=== PATIENT | male | born 1960 | race Two or more races ===

== ENCOUNTER 2019-12-03 07:10 | Outpatient (REF) | payer MEDICARE, MEDICAID, SELFPAY ==
[2019-12-03 07:22] LABS: COVID-19 Test Positive (Negative)
== END 2019-12-03 07:11 | disposition home or self-care (01) ==
LOC: HO.LAB 07:10
PROVIDERS: PCP Internal Medicine Endocrinology, Diabetes & Metabolism; Visit Provider Internal Medicine
DX: Z20.828 Contact with and (suspected) exposure to other viral communicable diseases (principal)
CPT/HCPCS: 87635

== ENCOUNTER 2019-12-21 07:06 | Outpatient (REF) | payer MEDICARE, MEDICAID, SELFPAY | END 2019-12-21 07:07 | disposition home or self-care (01) | LOC: HO.LAB 07:06 | PROVIDERS: PCP Internal Medicine Endocrinology, Diabetes & Metabolism; Visit Provider Internal Medicine | DX: Z20.828 Contact with and (suspected) exposure to other viral communicable diseases (principal) | CPT/HCPCS: U0003 ==

== ENCOUNTER 2020-12-12 21:58 | Emergency (ER) | payer MEDICARE, MEDICAID, SELFPAY ==
[2020-12-12 22:07] VITALS: BP 131/84; PULSE 71; RESP 16; TEMP 36.8; O2SAT 95; BMI 18.9
--- NOTE | 2020-12-12 22:58 | PC.NURSE ---
pt states he doesnt want to wait and he is tired and wants to go home. bp was wnl. steady gait. aox3
== END 2020-12-12 23:30 | disposition left against medical advice (07) ==
PROVIDERS: Emergency Provider Emergency Medicine; PCP Internal Medicine Endocrinology, Diabetes & Metabolism
DX: R03.0 Elevated blood-pressure reading, without diagnosis of hypertension (principal)
CPT/HCPCS: 99281; 99282

== ENCOUNTER 2022-08-28 08:37 | Emergency (ER) | payer OTHER, MEDICAID, SELFPAY ==
--- NOTE | 2022-08-28 08:47 | ED.GENADULT ---
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 Patient states that on 08/18/2022 he was [place] when he fell down some stairs and got a large left sided back laceration. Patient states that 18 sutures were placed and he was not given any antibiotics. Patient denies any drainage from the area. Patient denies any dizziness, lightheadedness, abdominal pain, nausea, vomiting, fever, chills, blurry vision, double vision, loss of vision, chest pain, difficulty breathing, shortness of breath, back pain, night sweats, pain with urination, increased urinary frequency, increased urinary urgency, blood in his urine or stool, syncope or a near syncopal episode, bowel incontinence, bladder incontinence, bowel retention, bladder retention, or any other complaints at this time. Location: back Radiation: non-radiation Severity: mild Severity scale (1-10): 1 Relieving factors: none Exacerbating factors: none Associated symptoms: denies other symptoms Treatments prior to arrival: none Related Data Allergies Allergy/AdvReac Type Severity Reaction Status Date / Time No Known Allergies Allergy Verified 08/28/22 08:45 Review of Systems Constitutional: Constitutional: Reports no additional constitutional complaints, Denies chills, Denies fever(s) and Denies night sweats Eyes: Eyes: Reports no additional eye complaints, Denies blurry vision, Denies change in vision, Denies diplopia, Denies eye discharge, Denies loss of vision and Denies eye pain ENT: Denies dizziness Cardiovascular: Cardiovascular: Reports no additional cardiovascular complaints, Denies chest pain, Denies lightheadedness, Denies Loss of Consciousness and Denies dyspnea Respiratory: Respiratory: Reports no additional respiratory complaints and Denies dyspnea Gastrointestinal: Gastrointestinal: Reports no additional gastrointestinal complaints, Denies abdominal pain, Denies melena, Denies hematochezia, Denies change in bowel habits and Denies change in stool character Genitourinary: Genitourinary: Reports no additional male genitourinary complaints, Denies hematuria, Denies oliguria, Denies difficulty urinating, Denies dysuria, Denies urinary frequency, Denies urinary hesitancy, Denies urinary incontinence and Denies urinary urgency Musculoskeletal: Musculoskeletal: Reports no additional musculoskeletal complaints, Denies numbness and Denies tingling Integumentary/Breasts: Comments: sutured laceration to right back Neurologic: Denies dizziness, Denies loss of vision, Denies numbness and Denies tingling Psychiatric: Psychiatric: Reports no additional psychiatric complaints Endocrine: Endocrine: Reports no additional endocrine complaints Hematologic/Lymphatic: Hematologic/Lymphatic: Reports no additional hematologic/lymphatic complaints Allergic/Immunologic: Allergic/Immunologic: Reports no additional allergic/immunologic complaints [facility] Past Medical History Attestation statement: The following information was validated with the patient. Source: old records reviewed and nursing notes reviewed Medical History (Updated 08/28/22 @ 09:34 by LEATHA Trevizo) High cholesterol Hypertension Social History Social History Advance Directives: No Physical Exam ED Vital Signs: Vital Signs - 24 hr 08/28/22 08:52 Temperature 98.1 F Pulse Rate 60 Respiratory Rate 16 Blood Pressure 124/86 Pulse Oximetry 96 Oxygen Delivery Method Room Air BMI result Body Mass Index 31.5 Const General: cooperative, no acute distress, alert and awake Nutritional Appearance: well nourished Orientation/consciousness: patient oriented x3 Limitations: no limitations HENMT Head: Yes normal to inspection and Yes atraumatic Ears: hearing grossly normal bilaterally and external ears normal General nose exam: Normal external nose present, no nasal discharge noted and no epistaxis Face and sinus: Yes normal facial exam, No abrasion and No laceration Mouth: Normal oral and palatal mucosa present, no drooling and no muffled voice Eyes General: appearance normal, both eyes and all related structures Periorbital: periorbital findings normal Eyelids: Yes eyelids normal Conjunctivae: conjunctivae normal Pupils: Equal, round and reactive pupils present EOM: EOMs intact bilaterally Neck Neck: Yes normal visual inspection, Yes full ROM and Yes no lymphadenopathy Chest Chest palpation & inspection: normal inspection of the chest Resp Effort & Inspection: normal respiratory effort and able to speak in complete sentences GI Inspection: Yes normal to inspection Back/Spine/Pelvis Other: Neuro General: patient oriented x3 and moves all extremities Cranial nerves: Yes Equal, round and reactive pupils present Cognition (Neuro): normal cognition Motor exam (neuro): 5/5 motor strength present throughout Sensory Exam: Normal double simultaneous stimulation for sensation Coordination: [id number] test normal Extrem General: Yes normal to inspection, Yes full ROM and Yes capillary refill normal Psych Appearance: grossly normal Mental Status: mental status grossly normal Affect: normal affect Attitude: cooperative Thought process: Normal thought process present Thought content: Normal thought content present Insight: Good insight present (Psych) Procedures Procedure Narrative Procedure Narrative: All 18 nylon sutures were removed without incident. Patient's wound was debreaded and dressed with bacitracin, non-adherent gauze, and bulky gauze over top. Medical Decision Making Medical Decision Making MDM Narrative: Patient is a 62 year old assigned male at with a history of HTN presenting to the emergency department today for suture removal. Patient's physical exam was as noted in the physical exam portion of this chart. I explained my physical exam findings to the patient. I answered all questions asked by the patient. Patient's sutures were removed, without incident. The wound was debreaded and dressed appropriately. There was no evidence of infection. I stressed the importance of the patient taking his medication as prescribed. I stressed the importance of the patient following up with his primary care provider and the wound center. I stressed the importance of the patient returning to the emergency department immediately if his symptoms were to worsen or if he were to develop any dizziness, shortness of breath, difficulty breathing, chest pain, blurry vision, loss of vision, nausea, vomiting, abdominal pain, fever, chills, back pain, or any other complaints. Patient verbalized agreement and understanding with this treatment plan and discharge. Differential Diagnosis Differential Diagnoses: The differential diagnosis associated with the presentation includes Suture removal Wound on back Prescription Management I considered prescription management with: Antibiotic (considered however, no evidence of infection present currently. ) Chronic Conditions Patient?s care impacted by: Hypertension Discharge Plan Discharge Clinical Impression: Wound of back, Visit for suture removal Patient Disposition: Home, Self-Care Instructions: Stitches Removal (ED) Additional Instructions: Follow up with your primary care provider and the wound center. Do NOT soak the affected area. Perform daily would checks and dressing changes. Return to the emergency department immediately if your symptoms worsen or if you develop any dizziness, shortness of breath, difficulty breathing, chest pain, blurry vision, loss of vision, nausea, vomiting, abdominal pain, fever, chills, back pain, or any other complaints. Grayson un seguimiento con arroyo proveedor de atenci?n primaria y el centro de heridas. NO remoje el ?misha afectada. Realizar controles diarios y cambios de vendajes. Regrese al departamento de emergencias de inmediato si josé s?ntomas empeoran o si presenta mareos, falta de aire, dificultad para respirar, dolor de pecho, visi?n borrosa, p?rdida de la visi?n, n?useas, v?mitos, dolor abdominal, fiebre, escalofr?os, dolor de espalda o cualquier otras quejas. Referrals: [facility] [place]] (Call to establish and follow up with a primary care provider. If you already have a primary care provider, please follow up with them. Llame para establecer y hacer un seguimiento con un proveedor de atenci?n primaria. Si ya tiene un proveedor de atenci?n primaria, grayson un seguimiento con ?l.) [facility]] (Call to establish and follow up with a primary care provider. If you already have a primary care provider, please follow up with them. Llame para establecer y hacer un seguimiento con un proveedor de atenci?n primaria. Si ya tiene un proveedor de atenci?n primaria, grayson un seguimiento con ?l.) [facility] [[facility]] (Call to establish and follow up with a primary care provider. If you already have a primary care provider, please follow up with them. Llame para establecer y hacer un seguimiento con un proveedor de atenci?n primaria. Si ya tiene un proveedor de atenci?n primaria, grayson un seguimiento con ?l.) [facility] [Provider Group] (Call to establish and follow up with the wound center. Llame para establecer y hacer un seguimiento con el centro de heridas.) Print Language: Icelandic
[2022-08-28 08:52] VITALS: BP 124/86; PULSE 60; RESP 16; TEMP 36.7; O2SAT 96; BMI 31.5
== END 2022-08-28 09:40 | disposition home or self-care (01) ==
PROVIDERS: Emergency Provider Emergency Medicine Emergency Medical Services; PCP Internal Medicine Endocrinology, Diabetes & Metabolism
DX: Z48.02 Encounter for removal of sutures (principal); S31.010D Laceration without foreign body of lower back and pelvis without penetration into retroperitoneum, subsequent encounter; W10.8XXD Fall (on) (from) other stairs and steps, subsequent encounter
CPT/HCPCS: 99282

== ENCOUNTER 2022-08-31 06:19 | Emergency (ER) | payer OTHER, MEDICAID, SELFPAY ==
[2022-08-31 06:35] VITALS: BP 106/70; PULSE 66; RESP 18; TEMP 36.2; O2SAT 98; BMI 29.7
--- NOTE | 2022-08-31 06:42 | ED_ITS ---
HPI - Wound/Laceration General Chief Complaint: Wound/Laceration Stated Complaint: Wound Check? Time Seen by Provider: 08/31/22 06:28 Source: patient Mode of arrival: ambulatory Limitations: no limitations History of Present Illness HPI narrative: 62 yo male with history of HTN, HLD and recent fall w/ a wound to his right scapular area requiring 18 sutures who presents back to the ER for evaluation of the wound. He was seen here on 08/28 for removal of the sutures. They were placed on 08/18 after he fell down stairs and got a cut from a broken flower pot. He states he has no pain in the area but cannot see it so he came back to the ER for evaluation. He denies fever, chills, or any known drainage from the area. He did not follow up with the Wound Clinic yet (said he never got the info). Onset (ago): day(s) Location: back Patient tetanus UTD: Yes Context: accidental Associated symptoms: none Treatments prior to arrival: bandage Related Data Previous Rx's Medication Instructions Recorded amoxicillin 875 mg-potassium 1 tab PO BID #10 tabs 08/31/22 clavulanate 125 mg tablet Allergies Allergy/AdvReac Type Severity Reaction Status Date / Time No Known Allergies Allergy Verified 08/28/22 08:45 Review of Systems Review of Systems: Yes all other systems are reviewed and are negative [facility] Past Medical History Medical History (Updated 08/31/22 @ 06:42 by LEATHA Joaquin) High cholesterol Hypertension Social History Social History Advance Directives: No Advance Directives Information Provided: No Physical Exam Vital Signs: Vital Signs: Last Vital Signs Temp 97.1 F 08/31/22 06:35 Pulse 66 08/31/22 06:35 Resp 18 08/31/22 06:35 BP 106/70 08/31/22 06:35 Pulse Ox 98 08/31/22 06:35 O2 Del Method Room Air 08/31/22 06:35 BMI result Body Mass Index 29.7 Appearance: Alert. Oriented X3. No acute distress. HEENT: normal inspection CVS: Normal heart rate and rhythm. Pulses normal. Respiratory: No respiratory distress. Skin: Skin warm and dry. Normal skin color. Normal skin turgor. No rashes. Back: right lateral scapular area with a healing irregularly shaped wound, open area laterally with yellow and macerated area without fluctuance or active drainage, no surrounding erythema, nontender Extremities: normal inspection x4. Neuro: Oriented X 3. No motor deficit. No sensory deficit. Medical Decision Making Medical Decision Making [facility] Narrative: 62 yo male presents for evaluation of a right scapular wound, sustained 2 weeks ago, sutures removed 3 days ago. Area appears to be healing however delayed. There is area of maceration and yellowish discoloration without any active drainage. No palpable fluctuance to suggest an abscess. Given concern for possible early infection empiric antibiotics to be started for short course. He was in get encouraged to follow-up with Wound Care/wound clinic. He is stable for discharge home. Return precautions were discussed. Differential Diagnosis Differential Diagnoses: The differential diagnosis associated with the presentation includes developing cellulitis, developing abscess, delayed wound healing External Record Review External record reviewed: Outpatient record Tests considered The following testing was considered but not selected: Considered lab workup on the patient however no fevers and no significant cellulitic changes so this was deferred today Prescription Management I considered prescription management with: Pain Medication and Antibiotic Critical Care Time Critical Care Time Critical Care Time: No Discharge Plan Discharge Clinical Impression: Delayed healing of traumatic wound Patient Disposition: Home, Self-Care Instructions: Acute Wounds (DC) Additional Instructions: Take the prescribed antibiotics as directed, complete the entire course and do not miss any doses Follow up with the wound clinic - name and number below, call for an appointment If you develop new or worsening symptoms call 911 or come back to the ER for further evaluation. Prescriptions: New amoxicillin-pot clavulanate 875-125 mg tablet 1 tab PO BID Qty: 10 0RF Referrals: [facility] [place] Wound Care Management [Provider Group] Interventions: ED Discharge Assessment Last Done: 08/31/22 07:23
== END 2022-08-31 07:25 | disposition home or self-care (01) ==
PROVIDERS: Emergency Provider Student in an Organized Health Care Education/Training Program; PCP Internal Medicine Endocrinology, Diabetes & Metabolism
DX: Z48.00 Encounter for change or removal of nonsurgical wound dressing (principal)
CPT/HCPCS: 99282; 99283

== ENCOUNTER 2023-12-23 10:43 | Emergency (ER) | payer MEDICARE, MEDICAID, SELFPAY ==
[2023-12-23 11:03] VITALS: BP 133/91; PULSE 57; RESP 16; TEMP 36.1; O2SAT 99; BMI 28.2
--- NOTE | 2023-12-23 11:09 | ED_ITS ---
HPI - General Adult General Chief complaint: Extremity Problem Stated complaint: gout Time Seen by Provider: 12/23/23 11:07 Source: patient Mode of arrival: ambulatory History of Present Illness ED Provider: Sergo Mercado PA-C HPI narrative: 63 yold male with pmh of gout presents to the ED for left big toe pain without any trauma for couple of days. patient states slight redness at big toe joint. patient states no fever, chills, pus discharge, chest pain, leg swelling, or shorntess of breath. Related Data Previous Rx's ?Medication ?Instructions ?Recorded amoxicillin 875 mg-potassium 1 tab PO BID #10 tabs 08/31/22 clavulanate 125 mg tablet colchicine 0.6 mg capsule 0.6 mg PO BID 3 days #6 caps 12/23/23 indomethacin 50 mg capsule 50 mg PO TID 7 days #21 caps 12/23/23 prednisone 20 mg tablet 40 mg (2 x 20 mg) PO DAILY 5 days 12/23/23 #10 tabs Allergies Allergy/AdvReac Type Severity Reaction Status Date / Time No Known Allergies Allergy Verified 12/23/23 11:06 Review of Systems 2 Review of Systems: left big toe pain Yes all other systems are reviewed and are negative [facility] Past Medical History Medical History (Updated 12/24/23 @ 00:02 by Lillie Herrera) High cholesterol Hypertension Social History Social History Advance Directives: No Advance Directives Information Provided: Yes Physical Exam ED Vital Signs: Vital Signs - 24 hr 12/23/23 11:03 12/23/23 11:19 Temperature 97 F 97 F Pulse Rate 57 57 Respiratory Rate 16 16 Blood Pressure 133/91 H 133/91 H Pulse Oximetry 99 99 Oxygen Delivery Method Room Air Room Air BMI result Body Mass Index 28.2 Const General: cooperative, healthy appearing, comfortable, no acute distress, well developed, alert, awake and Physically active Orientation/consciousness: patient oriented x3 HENMT Head: Yes normal to inspection, Yes No palpable skull fracture present, Yes normocephalic and Yes atraumatic Eyes General: appearance normal, both eyes and all related structures Neck Neck: Yes normal visual inspection, Yes full ROM, Yes no lymphadenopathy, Yes no meningeal signs, Yes trachea midline, Yes supple, No anterior neck swelling and No tender Chest Chest palpation & inspection: normal inspection of the chest and normal palpation of entire chest wall Resp Effort & Inspection: normal respiratory effort and able to speak in complete sentences Auscultation: clear to auscultation bilaterally Cardio Jugular venous distension: no JVD Heart sounds: S1 normal heart sound present and S2 normal heart sound present GI Inspection: Yes normal to inspection Palpation (GI): Soft to palpation, not firm, nontender, no guarding and not rigid General: Yes no CVA tenderness Back/Spine/Pelvis Back: no CVA tenderness and No back tenderness Skin General skin exam: no rashes or lesions noted, elasticity normal and turgor normal Neuro General: patient oriented x3, gait normal, tone normal, moves all extremities, Normal light touch and pain sensation, no meningeal signs, no focal motor deficits and CN's II-XI intact bilaterally Extrem General: Yes normal to inspection, Yes full ROM and Yes capillary refill normal Ankle/foot/toe images: 2 1. tenderness with slight redness. no ecchymosis, blackness, crepitus, deformities, pus discahrge, foul odor, or ulcers/wounds. rest of extremity is normal. motor, neuro, and vascular exam is intact. Psych Appearance: grossly normal, well kempt and not disheveled Medical Decision Making Medical Decision Making MDM Narrative: RME; 63 yold male with pmh gout presents to the ED for left foot pain. Patient states left big toe without any trauma and slight redness. Patient denies any history of diabetes. Patient states no fever calf pain leg swelling red streaks chest pain or shortness of breath. Patient states he has been without his gout medication for awhile. Patient came from [place]. Not suspecting cellulittis, osteomyelitits, fracture, necroititizing fascitits, DVT, arterial occlusion, or any other life threatening etioligies. patient explained worrisome signs and informed to return to ED. Differential Diagnosis Differential Diagnoses: The differential diagnosis associated with the presentation includes (Gout,) Admission/Observation Consideration of admission/observation: Escalation of care including admission/observation considered Independent Historian Clinical information obtained from an independent historian. History obtained from or confirmed by: Other (Patient) External Record Review External record reviewed: Other (prior patients) Discharge Plan Discharge Clinical Impression: Gout Patient Disposition: Home, Self-Care Instructions: Gout (ED) Additional Instructions: Recommend follow up with PCP. Return to the ED immediately for worsening pain, increased redness, red streaks, bluish black discoloration, fever, pus discharge, foul odor, calf pain, chest pain, shortness of breath, or any other concerning symptoms. Prescriptions: New indomethacin 50 mg capsule 50 mg PO TID 7 Days Qty: 21 0RF Rx Instructions: administer with food or milk colchicine 0.6 mg capsule 0.6 mg PO BID 3 Days Qty: 6 0RF prednisone 20 mg tablet 40 mg PO DAILY 5 Days Qty: 10 0RF No Action amoxicillin-pot clavulanate 875-125 mg tablet 1 tab PO BID Qty: 10 0RF Referrals: Maria L Grimes MD [Primary Care Provider] - (Gout flare) Interventions: ED Discharge Assessment Last Done: 12/23/23 11:19 Discharge Date/Time: 12/23/23 11:20 Print Language: Upper Sorbian
[2023-12-23 11:19] VITALS: BP 133/91; PULSE 57; RESP 16; TEMP 36.1; O2SAT 99
== END 2023-12-23 11:20 | disposition home or self-care (01) ==
PROVIDERS: Emergency Provider Student in an Organized Health Care Education/Training Program; PCP Internal Medicine
DX: M10.9 Gout, unspecified (principal); M79.675 Pain in left toe(s); I10 Essential (primary) hypertension; Z79.899 Other long term (current) drug therapy
CPT/HCPCS: 99282; 99283

== ENCOUNTER 2024-01-28 14:42 | Emergency (ER) | payer MEDICARE, MEDICAID, SELFPAY ==
[2024-01-28 15:27] VITALS: BP 116/71; PULSE 73; RESP 20; TEMP 36.5; O2SAT 97; BMI 26.6
[2024-01-28 15:44] LABS: MANUAL DIFF FLAG NO
[2024-01-28 15:47] LABS: Basophils Percent Auto 0.4 % (0-2); Eosinophils Percent Auto 0.3 % (0-4); Hematocrit 46.8 % (42.0-52.0); Hemoglobin 15.7 g/dl (14.0-18.0); Imm Gran Abs Auto 0.02 X10*3/uL (0.00-0.03); Imm Gran Pct Auto 0.3 % (0.0-0.4); Lymphocytes Absolute Auto 1.1 X10*3/uL (1.2-4.9); Mean Corpuscular HGB Conc 33.5 g/dl (31.0-36.0); Mean Corpuscular Hemoglobin 28.4 pg (27.0-33.0); Mean Corpuscular Volume 84.8 fL (80.0-98.0); Monocytes Absolute Auto 0.3 X10*3/uL (0.1-1.2); Monocytes Percent Auto 4.4 % (2-11); Neutrophils Percent Auto 79.6 % (45-73); Platelet Count 231 X10*3/uL (160-400); Red Blood Count 5.52 X10*6/uL (4.60-5.80); Red Cell Distribution Width 13.7 % (11.0-16.0); White Blood Count 7.5 X10*3/uL (4.8-10.8)
[2024-01-28 16:00] LABS: Anion Gap 12 (12-20); Blood Urea Nitrogen 11 mg/dL (9-16); Calcium 9.6 mg/dL (8.4-10.2); Carbon Dioxide 27 mmol/L (22-29); Chloride 104 mmol/L (96-108); Creatinine Clr Calc Pharmacy 54.2; Estimated Glomerular Filt Rate 57; Glucose Random 113 mg/dL (60-115); Potassium 4.5 mmol/L (3.3-5.1); Sodium 138 mmol/L (135-145); Uric Acid 6.4 mg/dL (3.4-7.0)
[2024-01-28 16:40] VITALS: BP 95/71; PULSE 72; RESP 16; TEMP 36.7; O2SAT 99
--- NOTE | 2024-01-28 16:45 | ED.GENADULT ---
HPI - General Adult General Chief complaint: Extremity Problem Stated complaint: Gout Time Seen by Provider: 01/28/24 16:38 Source: patient Mode of arrival: ambulatory Limitations: no limitations History of Present Illness ED Provider: Bob HPI narrative: Patient is a 63-year-old male with history of HTN, high cholesterol, gout presenting to the emergency department with complaint of pain to left MTP joint for the past two weeks. Seen here on 12/22 and treated with indomethacin, colchicine and prednisone. States symptoms improved and then returned. Denies fevers. Denies any traumatic injury. States he lives alone so it is difficulty for him to rest/elevate his foot. complaint: toe pain Onset (ago): week(s) Location: left and lower extremity Severity: severe Quality: aching Relieving factors: rest Exacerbating factors: movement and other (weight bearing) Associated symptoms: denies other symptoms Treatments prior to arrival: other Related Data Previous Rx's ?Medication ?Instructions ?Recorded amoxicillin 875 mg-potassium 1 tab PO BID #10 tabs 08/31/22 clavulanate 125 mg tablet colchicine 0.6 mg capsule 0.6 mg PO BID 3 days #6 caps 12/23/23 indomethacin 50 mg capsule 50 mg PO TID 7 days #21 caps 12/23/23 prednisone 20 mg tablet 40 mg (2 x 20 mg) PO DAILY 5 days 12/23/23 #10 tabs indomethacin 50 mg capsule 50 mg PO TID 7 days #21 caps 01/28/24 prednisone 20 mg tablet See Rx Instructions .Route 01/28/24 .COMPLEX #18 tabs Allergies Allergy/AdvReac Type Severity Reaction Status Date / Time No Known Allergies Allergy Verified 01/28/24 15:28 Review of Systems Review of Systems: As per HPI Yes all other systems are reviewed and are negative Constitutional: Constitutional: Reports as per HPI [facility] Past Medical History Medical History (Updated 01/28/24 @ 17:32 by Summer Rojas NP) High cholesterol Hypertension Social History Social History Advance Directives: No Advance Directives Information Provided: No Physical Exam ED Vital Signs: Vital Signs - 24 hr 01/28/24 15:27 01/28/24 16:40 Temperature 97.7 F 98.1 F Pulse Rate 73 72 Respiratory Rate 20 16 Blood Pressure 116/71 95/71 Pulse Oximetry 97 99 Oxygen Delivery Method Room Air Room Air BMI result Body Mass Index 26.6 Vital signs have been reviewed and appear to be correct. Blood pressure normal. Heart rate normal. Respiratory rate normal. Temperature normal. Oxygen saturation normal. Const General: cooperative, healthy appearing and no acute distress Orientation/consciousness: oriented to person, oriented to place, oriented to time and patient oriented x3 Limitations: no limitations HENMT Head: Yes normocephalic and Yes atraumatic Ears: external ears normal General nose exam: Normal external nose present Face and sinus: Yes face symmetric Mouth: oropharynx normal and moist mucous membranes Throat: Yes uvula midline Eyes Pupils: Equal, round and reactive pupils present Neck Neck: Yes normal visual inspection and Yes supple Resp Effort & Inspection: normal respiratory effort and able to speak in complete sentences Auscultation: clear to auscultation bilaterally Cardio Rate: regular rate Rhythm: regular rhythm Heart sounds: S1 normal heart sound present and S2 normal heart sound present GI Palpation (GI): Soft to palpation and nontender Auscultation: normoactive bowel sounds General: Yes no CVA tenderness Back/Spine/Pelvis Back: no CVA tenderness Skin General skin exam: elasticity normal and turgor normal Neuro General: oriented to person, oriented to place, oriented to time, patient oriented x3, moves all extremities, no focal motor deficits and CN's II-XI intact bilaterally Cranial nerves: Yes Equal, round and reactive pupils present Cognition (Neuro): normal cognition Extrem General: Yes full ROM, Yes no pedal edema and Yes no calf tenderness Left lower extremity: foot Details: normal capillary refill, tenderness Location: of the great toe Location: at the MTP joint, toes with normal ROM, warmth Location: of the great toe Location: at the MTP joint, vascular exam Details: dorsalis pedis pulse present, posterior tibial pulse present and normal capillary refill and other (erythema to MTP joint of 1st toe) Psych Mental Status: mental status grossly normal Affect: normal affect Thought process: Normal thought process present Medical Decision Making Medical Decision Making MDM Narrative: Patient is a 63-year-old male with history of HTN, high cholesterol, gout presenting to the emergency department with complaint of pain to left MTP joint for the past two weeks. On exam patient is awake, A+Ox3, VS WNL, afebrile, normal neurological exam without focal deficits, physical exam findings as above. Given reported symptoms and physical exam findings, initial differential includes gout flare, cellulitis. Do not suspect septic joint. Labs notable for no leukocytosis, normal ESR, CRP, uric acid. Presentation consistent with gout flare, will treat with indomethacin and prednisone, advised patient to follow up with PCP. Return precautions discussed. Patient verbalized understanding of and agreement with plan. Differential Diagnosis Differential Diagnoses: The differential diagnosis associated with the presentation includes As per [facility] Lab Data [facility] Lab Attestation statement: I reviewed the patient's lab results. As per [facility] 01/28/24 15:41 01/28/24 15:41 Labs: Lab Results 01/28/24 Range/Units 15:41 WBC 7.5 (4.8-10.8) X10*3/uL RBC 5.52 (4.60-5.80) X10*6/uL Hgb 15.7 (14.0-18.0) g/dl Hct 46.8 (42.0-52.0) % MCV 84.8 (80.0-98.0) fL MCH 28.4 (27.0-33.0) pg MCHC 33.5 (31.0-36.0) g/dl RDW 13.7 (11.0-16.0) % Plt Count 231 (160-400) X10*3/uL MPV 10.0 (9.4-12.4) fL Immature Gran % (Auto) 0.3 (0.0-0.4) % Neut % (Auto) 79.6 H (45-73) % Lymph % (Auto) 15.0 L (20-40) % [place] % (Auto) 4.4 (2-11) % Eos % (Auto) 0.3 (0-4) % Baso % (Auto) 0.4 (0-2) % Lymph # (Auto) 1.1 L (1.2-4.9) X10*3/uL [place] # (Auto) 0.3 (0.1-1.2) X10*3/uL Eos # (Auto) 0.0 (0.0-0.4) X10*3/uL Baso # (Auto) 0.0 (0.0-0.2) X10*3/uL Abs Immat Gran (auto) 0.02 (0.00-0.03) X10*3/uL Absolute Neuts (auto) 6.0 (2.0-8.3) x10*3/uL Absolute Nucleated RBC 0.000 (0.0-0.012) X10*3/uL Nucleated RBC % (auto) 0.0 (0.0-0.2) /100WBC ESR 6 (0-15) MM/HR Sodium 138 (135-145) mmol/L Potassium 4.5 (3.3-5.1) mmol/L Chloride 104 (96-108) mmol/L Carbon Dioxide 27 (22-29) mmol/L Anion Gap 12 (12-20) BUN 11 (9-16) mg/dL Creatinine 1.27 (0.5-1.4) mg/dL Estim Creat Clear Calc 54.2 Estimated GFR 57 Random Glucose 113 (60-115) mg/dL Uric Acid 6.4 (3.4-7.0) mg/dL Calcium 9.6 (8.4-10.2) mg/dL C-Reactive Protein 0.19 (< or = 0.50) mg/dL External Record Review External record reviewed: Inpatient record, Office record and Outpatient record Prescription Management I considered prescription management with: Pain Medication Discharge Plan Discharge Clinical Impression: Gout flare Patient Disposition: Home, Self-Care Instructions: Low Purine Diet (ED), Gout (ED) Additional Instructions: You were evaluated in the emergency department today for toe pain which is likely due to a gout flare. Take the prescribed medication as directed. Schedule a follow up appointment with your primary care provider. Return to the emergency department if you develop increasing redness, swelling, fever, thick yellow drainage or any other new or concerning symptoms. Prescriptions: New prednisone 20 mg tablet See Rx Instructions .ROUTE .COMPLEX Qty: 18 0RF Rx Instructions: 60mg (3 tabs) x 3 days then 40mg (2 tabs) x 3 days, then 20mg (1 tab) x 3 days indomethacin 50 mg capsule 50 mg PO TID 7 Days Qty: 21 0RF Rx Instructions: administer with food or milk No Action amoxicillin-pot clavulanate 875-125 mg tablet 1 tab PO BID Qty: 10 0RF indomethacin 50 mg capsule 50 mg PO TID 7 Days Qty: 21 0RF Rx Instructions: administer with food or milk colchicine 0.6 mg capsule 0.6 mg PO BID 3 Days Qty: 6 0RF prednisone 20 mg tablet 40 mg PO DAILY 5 Days Qty: 10 0RF Print Language: Martiniquais
[2024-01-28 16:46] LABS: C Reactive Protein 0.19 mg/dL (< or = 0.50)
[2024-01-28 17:37] LABS: Erythrocyte Sedimentation Rate 6 MM/HR (0-15)
[2024-01-28 18:15] VITALS: BP 95/71; PULSE 72; RESP 16; TEMP 36.7; O2SAT 99
== END 2024-01-28 18:16 | disposition home or self-care (01) ==
PROVIDERS: Physician Assistant Medical; Emergency Provider Internal Medicine; PCP Internal Medicine
DX: M10.9 Gout, unspecified (principal); M25.572 Pain in left ankle and joints of left foot; I10 Essential (primary) hypertension; Z79.899 Other long term (current) drug therapy
CPT/HCPCS: 36415; 80048; 84550; 85025; 85652; 86140; 99283